=== PATIENT | male | born 1935 | race Caucasian/White ===

== ENCOUNTER 2017-03-05 14:18 | Inpatient (IN) ==
[2017-03-05] MEDS ORDERED: IOPAMIDOL 100 ML BOTTLE IV ONE (14:19)
--- NOTE | 2017-03-05 15:20 | Emergency Department Note ---
Weakness HPI - General Chief complaint: Weakness Stated complaint: Weakness Time Seen by Provider: 03/05/17 14:50 Source: patient, family Mode of arrival: wheelchair Limitations: no limitations - History of Present Illness HPI Narrative: This pleasant 81-year-old gentleman comes to the emergency room with a history of falling down a lot and this is been going on a long time but is gotten worse the last few days. 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 He has had a couple of days and which has been harder for him to be understood as far as his speech. His right leg has felt weak and giving out from underneath him as well as a floppy right foot different than usual. He has had no change in his medications except that 10 days ago tramadol was tried for his multitude of musculoskeletal pains and aches. 2 days ago he was taken off of this to see if it was contributing because he was also showing some up and down in his thinking. This is not seem to reverse in these 2 days. It has been harder to feed himself. Usually he normally does. His water pill was increased about 10 days ago for his congestive heart failure to help get some fluid off. The increased dose was just changed back to the previous dose today. REVIEW OF SYSTEMS: General: No fevers, chills, sweats CV: No chest pain, palpitations Pulmonary: No cough or shortness of breath. He uses oxygen at home 2 L/min day and night. GI: No abdominal pain nausea, vomiting, diarrhea, constipation, hematochezia, melena. : No dysuria or frequency. He has had some urgency. Derm: No rashes. Neuro: Has had a generalized chronic headache as if he has a hangover. He has some mild dizziness. Psych: He has some history of anxiety and depression and is on a medication/ antidepressant. Endocrine: Has felt fatigued chronically and rather significant or severely. - Related Data Home Medications Medication Instructions Recorded Confirmed Clopidogrel [Plavix] 75 mg PO DAILY 11/26/14 02/22/17 Omeprazole [Prilosec] 40 mg PO QDAY 11/26/14 02/22/17 Potassium Chloride [Klor-Con] 20 meq PO QIDP 11/26/14 02/22/17 amLODIPine [Norvasc] 5 mg PO DAILY 11/26/14 02/22/17 Bisoprolol Fumarate/Hctz 1 each PO BID 07/18/16 02/22/17 [Bisoprolol-Hctz 2.5-6.25 mg Tb] Tamsulosin [Flomax] 0.4 mg PO Q2D 07/18/16 02/22/17 Calcium + D 1 tab PO DAILY 09/30/16 02/22/17 acetaminophen 300 mg-codeine 30 mg 1 tab PO QID PRN tab 09/30/16 02/22/17 tablet amlodipine 10 mg tablet 10 mg PO QDAY 09/30/16 02/22/17 aspirin 81 mg tablet 81 mg PO .COMPLEX 09/30/16 02/22/17 glucosamine PO 10/01/16 02/22/17 mirtazapine 15 mg tablet 15 mg PO QDAY tab 10/01/16 02/22/17 Previous Rx's Medication Instructions Recorded citalopram 40 mg tablet 40 mg PO .COMPLEX #30 tab 10/22/16 atorvastatin 40 mg tablet 40 mg PO QDAY #90 tab 11/23/16 tramadol 50 mg tablet 50 mg PO Q6H PRN #90 tab 02/22/17 furosemide 40 mg tablet 40 mg PO BID #20 tab 02/24/17 Allergies Allergy/AdvReac Type Severity Reaction Status Date / Time bisacodyl Allergy Unknown Verified 02/22/17 16:29 senna Allergy Unknown Verified 02/22/17 16:29 Past Medical History - Past Medical History Medical history: Reports: cancer (prostate - seed implants.), CVA, hyperlipidemia, hypertension, other (Migraines, CVA, TIA, depression, hypertension, pacemaker, arthritis, degenerative joint disease urinary retention and prostatic cancer). Denies: COPD, dementia, DM (but "prediabetic". ), myocardial infarction, TIA Psychiatric history: Reports: anxiety, depression Surgical history ED: Reports: orthopedic, other (bilat. knee replacement), pacemaker/AICD - Social History smoking status: Former smoker Alcohol use: Reports: Occasionally, Daily (1-3 glasses of wine a day.) Drug use: Reports: none Physical Exam Limitations: no limitations General appearance: alert, in no apparent distress Head: atraumatic, normocephalic Eye: Present: EOMI, other (ectropian of lower lid moderate-severe.) ENT: mucous membranes moist, other (hard to understand some of speech - enunciation incomplete.) Respiratory: Present: normal lung sounds bilaterally. Absent: respiratory distress, wheezes, stridor, accessory muscle use, prolonged expiratory phase Cardiovascular: Present: regular rate, normal rhythm. Absent: systolic murmur, diastolic murmur Abdominal: Present: soft. Absent: distention, tenderness, guarding, rebound, rigidity, organomegaly, mass Extremities: Present: pretibial edema (trace bilateral pretibial (pitting).) Back: Absent: CVA tenderness (R), CVA tenderness (L), spinous process tenderness (except very low (mild).) Neurological: Present: alert, oriented X3 (missed date.) Psychiatric: Present: normal affect, normal mood Skin: Present: warm, dry Course Vital Signs Temperature 97.3 F 03/05/17 14:19 Pulse Rate 61 03/05/17 14:19 Respiratory Rate 16 03/05/17 14:19 Blood Pressure 163/85 03/05/17 14:19 Pulse Oximetry (%) 91 03/05/17 14:19 Temperature 97.3 F 03/05/17 14:19 Pulse Rate 60 03/05/17 18:34 Respiratory Rate 19 03/05/17 18:34 Blood Pressure 143/76 03/05/17 18:33 Pulse Oximetry (%) 97 03/05/17 18:34 Weakness - Lab Data Lab results reviewed: Yes I reviewed the patient's lab results. Result diagrams: 03/05/17 15:10 03/05/17 15:10 Lab Results 03/05/17 03/05/17 03/05/17 Range/Units 14:53 15:10 15:10 WBC 10.0 (4.5-11.0) K/mcL RBC 5.00 (4.50-5.90) M/mcL Hgb 14.4 (13.5-16.5) g/dL Hct 43.4 (41.0-55.0) % MCV 86.7 (80.0-100.0) fL MCH 28.9 (26.0-34.0) pg MCHC 33.3 (31.0-36.0) g/dL RDW 15.4 H (11.5-14.5) % Plt Count 187 (140-440) K/mcL MPV 8.2 (7.4-10.4) fL Gran % 64.9 (38.0-78.0) % Lymph % (Auto) 19.4 (15.5-49.0) % Mower % (Auto) 12.1 H (1.0-12.0) % Eos % (Auto) 3.2 (0.0-7.0) % Baso % (Auto) 0.4 (0.0-2.0) % Gran # 6.6 (1.8-8.0) K/mcL Lymph # (Auto) 1.9 (1.5-4.8) K/mcL Mower # (Auto) 1.2 H (0.1-0.9) K/mcL Eos # (Auto) 0.3 (0.0-0.7) K/mcL Baso # (Auto) 0 (0.0-0.3) K/mcL Sodium 145 (133-145) mmol/L Potassium 3.2 L (3.3-5.1) mmol/L Chloride 99 (96-108) mmol/L Carbon Dioxide 30 (22-30) mmol/L Anion Gap 16.0 (8-16) BUN 26 H (8-23) mg/dl Creatinine 1.4 H (0.7-1.2) mg/dl GFR Calculation 46 Glucose 108 H (70-105) mg/dL Calcium 8.9 (8.6-10.4) mg/dl Total Bilirubin 0.6 (0.0-1.0) mg/dL AST 19 (0-37) U/l ALT 11 (0-40) U/l Alkaline Phosphatase 83 (39-117) U/L C-Reactive Protein 1.0 H (0.0-0.8) mg/dl Total Protein 6.8 (5.9-8.4) gm/dL Albumin 4.0 (3.2-5.2) gm/dL Globulin 2.8 (2.2-3.7) gm/dL Albumin/Globulin Ratio 1.4 (1.0-2.3) Urine Color Yellow Urine Appearance Clear Urine pH 6.0 (5.0-9.0) Ur Specific [place] 1.012 (1.000-1.035) Urine Protein Neg (NEG) mg/dL Urine Glucose (UA) Negative (NEG) mg/dL Urine Ketones Neg (NEG) mg/dL Urine Occult Blood Neg (<0.03) mg/dL Urine Nitrate Neg (NEG) Urine Bilirubin Neg (NEG) mg/dL Urine Urobilinogen Neg (NEG) mg/dL Ur Leukocyte Esterase Neg (NEG) /uL Ur Culture Indicated? No - Radiology Data Radiology results reviewed: Yes I reviewed the patient's radiology results. Disposition Pt seen by [employer]/PA only: No Clinical Impression: Falling, Right leg weakness, Weakness of right foot, Weakness, Chronic anticoagulation, Artificial cardiac pacemaker, Supplemental oxygen dependent Summary: This patient had CT scan of his head with his past history a CTA of the head and neck was also achieved all of which were negative for stroke or perfusion abnormalities. Laboratory data showed a creatinine of 1.4 which is mildly elevated from previous. His potassium was mildly low at 3.2 which is suppressed from previous. BUN was elevated compared to previous. With patient's failure to be able to handle himself at home due to falls and weakness and dragging the foot, with changes in his speech and in this weakness , with probable dehydration from his diuretic, he is to be observed in the hospital while these are corrected and consider for placement in rehab. I spoke with Dr. Barney who kindly accepted this admission. Possibilities of a low back mechanical or compressive disorder contributing to his symptoms will be considered. MRI was not available this evening. Disposition: Xfer As Inpt ([facility]) Condition: Serious Referrals: Yovany Conde DO [Primary Care Provider] -
[2017-03-05 15:41] LABS: Basophils # (Auto) 0 K/mcL (0.0-0.3); Basophils % (Auto) 0.4 % (0.0-2.0); Eosinophils # (Auto) 0.3 K/mcL (0.0-0.7); Eosinophils % (Auto) 3.2 % (0.0-7.0); Granulocytes % (Auto) 64.9 % (38.0-78.0); Lymphocytes # (Auto) 1.9 K/mcL (1.5-4.8); Lymphocytes % (Auto) 19.4 % (15.5-49.0); Mean Cell Volume 86.7 fL (80.0-100.0); Mean Corpuscular HGB Conc 33.3 g/dL (31.0-36.0); Mean Corpuscular Hemoglobin 28.9 pg (26.0-34.0); Monocytes # (Auto) 1.2 K/mcL (0.1-0.9); Monocytes % (Auto) 12.1 % (1.0-12.0); Platelet Count 187 K/mcL (140-440); Red Cell Distribution Width 15.4 % (11.5-14.5)
[2017-03-05 16:03] LABS: ALT/SGPT 11 U/l (0-40); Albumin/Globulin Ratio 1.4 (1.0-2.3); Alkaline Phosphatase 83 U/L (39-117); Blood Urea Nitrogen 26 mg/dl (8-23)
--- NOTE | 2017-03-05 16:16 | Cat Scan Report ---
CLINICAL INFORMATION: Weakness history CVA COMPARISON: 07/18/2016. TECHNIQUE: 2.5 mm helical slices were obtained in the skull base to vertex. Following reconstruction, axial reformatted images were reviewed at bone and parenchymal windows. The exam was performed using radiation dose optimization techniques including, but not limited to, automated exposure control, adjustment of the mA and/or kV according to patient size and use of iterative reconstruction technique. FINDINGS: The ventricles, sulci, fissures, and cisterns are symmetrically enlarged compatible with mild age-related atrophy. No extra-axial fluid collections are identified. Patchy chronic ischemic changes in the cerebral white matter are stable. There is no evidence of hemorrhage, mass effect, or edema. Bone windows show no osseous abnormality. IMPRESSION: Mild atrophy and chronic ischemic changes in the cerebral white matter - stable Interpreted and Authenticated by: Yovany Mars 03/05/17
[2017-03-05 16:17] LABS: Appearance,Urine CLEAR; Bilirubin,Urine NEG (NEG); Color,Urine YELLOW; Glucose,Urine (UA) NEGATIVE (NEG); Leukocyte Esterase,Urine NEG /uL (NEG); Protein,Urine NEG (NEG); Specific Gravity,Urine 1.012 (1.000-1.035); Urine Blood NEG mg/dL (<0.03); Urobilinogen,Urine NEG (NEG)
--- NOTE | 2017-03-05 18:09 | Cat Scan Report ---
CLINICAL INFORMATION: Right leg weakness question CVA COMPARISON: None. TECHNIQUE: 80 cc of Isovue-300 were injected intravenously , and using SmartPrep to maximize cerebral arterial opacification, 0.625 mm helical slices were obtained from the skull base through the cerebral vertex. Following reconstruction , sagittal, coronal and axial reformatted images were processed and reviewed at multiple windows and levels. 3D volume rendered and MIP images were acquired at a independent workstation. The exam was performed using radiation dose optimization techniques including, but not limited to, automated exposure control, adjustment of the mA and/or kV according to patient size and use of iterative reconstruction technique. FINDINGS: The thoracic aortic arch is normal in contour and caliber. Aortic branching is conventional. The brachiocephalic, both subclavian, vertebral, both common, internal and external carotid arteries are widely patent. Soft tissues are normal. IMPRESSION: Normal Arteriogram Interpreted and Authenticated by: Yovany Mars 03/05/17
--- NOTE | 2017-03-05 18:10 | Cat Scan Report ---
CLINICAL INFORMATION: New onset leg weakness COMPARISON: None. TECHNIQUE: 80 cc of Isovue-300 were injected intravenously , and using SmartPrep to maximize cerebral arterial opacification, 0.625 mm helical slices were obtained from the skull base through the cerebral vertex. Following reconstruction , sagittal, coronal and axial reformatted images were processed and reviewed at multiple windows and levels. 3D volume rendered and MIP images were acquired at a independent workstation. The exam was performed using radiation dose optimization techniques including, but not limited to, automated exposure control, adjustment of the mA and/or kV according to patient size and use of iterative reconstruction technique. FINDINGS: The intracranial internal carotid, anterior, middle and posterior arteries and vertebral basilar arteries are well opacified and normal in contour and caliber without stenosis, occlusion or other abnormality. Superficial and deep cerebral veins and deep venous sinuses are widely patent IMPRESSION: Normal Interpreted and Authenticated by: Yovany Mars 03/05/17
[2017-03-05] MEDS ORDERED: 0.9 % SODIUM CHLORIDE 1,000 ML IV SCH (19:41)
[2017-03-05] MEDS ORDERED: ACETAMINOPHEN 325 MG TABLET PO PRN (19:41)
[2017-03-05] MEDS ORDERED: NALOXONE HCL 0.4 MG/ML VIAL IV PRN (19:41)
[2017-03-05] MEDS ORDERED: POTASSIUM CHLORIDE 20 MEQ PACKET PO ONE (19:41)
[2017-03-05] MEDS ORDERED: ONDANSETRON 4 MG/2 ML VIAL IV PRN (19:41)
[2017-03-05] MEDS: 0.9 % SODIUM CHLORIDE 10 ML SYRINGE IV SCH (19:45)
--- NOTE | 2017-03-05 21:18 | Internal Med History&Physical ---
Medical - H&P: HPI Patient information: Note initiated : 03/05/17 at 9:15 pm Service Date, if different from initiated Date: [] Patient: Jesus Falcon 81 y/o M admitted on 03/05/17 for Weakness. Chief Complaint: [] History of present illness: Mr. Falcon is a 81 year old Male presents to the ER today because of increased frequency of falls over the last 1 month, worse over last 1 week. The patient is accompained by his daugthers, and his , the patient has h/o CVA with Right sided weakness, over the last 1 week, its seen that he has had increased falls, His right leg and right arm is more weak than usual. He has had decline in his functional capacity. The patent just was diagnosed with cellulitis of the right leg and was treated with oral and IV antibiotics The patients also was noted to have some CHF exacerbation and his dose of diuretics was increased, with some response. The patient has chr back pain, as well as gen arthritis. He was given some tramadol 4-5 days ago, and initially it was felt that the increased falls and weakness is secondary to the patients use of tramadol, the patient continued to be weak despite cessation of tramadol therapy. The patient notes he has chr cough, and has noticed some wheezing, the patients admits to being dizzy, but denies any other complaints The patient is non smoker, but drinks 2 drinks daily He does not have any chest pain, no shortness of breath, no headache, no bowel or bladder complaints, no GI issues. In the ER the patient underwent COLLECTION CLERK workup, his labs showed low K of 3.2,. creat of 1.4, baseline 1.2, His CT Head, CTA neck and Head were neg for any acute process. Given is weakens, he was presented to the hospital for further evaluation, and was admitted to the hospital for further management. His bnp was normal, procalcitonin was neg, his CXR showed increased interstitial markings, and possible retrocardiac opacity. He was wheezing on exam but was on 2 L oxygen his usual home dose. Denies any h/o copd. All systems: reviewed and no additional remarkable complaints except as stated ( as per HPI) Medical - H&P: PM Medical history: Medical History (Last Reviewed 02/26/17 @ 07:38 by Yovany Conde DO) Abrasion (Acute) Contusion of right leg (Acute) Cellulitis (Acute) Falling (Acute) Right leg weakness (Acute) Weakness of right foot (Acute) Weakness (Acute) Chronic anticoagulation (Acute) Supplemental oxygen dependent (Acute) Cellulitis of right leg (Acute) Balance problem (Chronic) Hypoxemia (Acute) Headache (Chronic) Nuclear sclerotic cataract (Chronic) Non-rheumatic mitral regurgitation (Chronic) Contraction, premature ventricular (Chronic) AV block, 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) Extremity edema (Chronic) Repeated falls (Chronic) Hypertensive left ventricular hypertrophy (Chronic) Valvular heart disease (Chronic) Laceration of scalp without complication (Chronic) History of sleep apnea (Chronic) History of sick sinus syndrome (Chronic) History of head injury (Chronic) History of essential hypertension (Chronic) History of delirium (Chronic) Sleep apnea (Chronic) Sick sinus syndrome (Chronic) Reactive confusion (Chronic) Polycythemia (Chronic) Osteoarthritis (Chronic) Notalgia (Chronic) Muscle ache (Chronic) Hypoxia (Chronic) Hypokalemia (Chronic) Hyperlipidemia (Chronic) GERD without esophagitis (Chronic) Fatigue (Chronic) Edema (Chronic) Depression (Chronic) Cough (Chronic) Confusion (Chronic) Chronic diastolic congestive heart failure (Chronic) Acute sinusitis (Chronic) Abnormality of gait (Chronic) Abnormal hemoglobin (Chronic) SOB (shortness of breath) (Chronic ~2016) Heart trouble (Chronic ~2004) Stroke (Chronic ~2013) Joint pain (Chronic) Pacemaker (Chronic ~2004) Hypertension, essential (Chronic) Prostate cancer (Chronic ~2003) Arthritis (Chronic) Closed head injury (Chronic) Scalp laceration (Chronic) Laceration of right orbit (Chronic) Laceration (Chronic) Surgical history: Past Surgical History (Last Reviewed 02/26/17 @ 07:38 by Yovany Conde DO) H/O colonoscopy (Chronic) H/O left knee surgery (Chronic ~2006) H/O right knee surgery (Chronic ~2006) History of knee surgery (Chronic) History of permanent cardiac pacemaker placement (Chronic ~2004) Pertinent family history: Family History (Last Reviewed 02/26/17 @ 07:38 by Yovany Conde DO) Mother Arthritis Father Hypertension, essential Myocardial infarction Stroke syndrome Medical - H&P: Meds Home Medications Medication Instructions Recorded Confirmed Type Clopidogrel [Plavix] 75 mg PO DAILY 11/26/14 03/05/17 History Omeprazole [Prilosec] 40 mg PO QDAY 11/26/14 03/05/17 History Potassium Chloride [Klor-Con] 20 meq PO QIDP 11/26/14 03/05/17 History Bisoprolol Fumarate/Hctz 1 each PO BID 07/18/16 03/05/17 History [Bisoprolol-Hctz 2.5-6.25 mg Tb] Tamsulosin [Flomax] 0.4 mg PO QDAY 07/18/16 03/05/17 History amlodipine 10 mg tablet 10 mg PO QDAY 09/30/16 03/05/17 History aspirin 81 mg tablet 81 mg PO .COMPLEX 09/30/16 03/05/17 History glucosamine PO 10/01/16 02/22/17 History atorvastatin 40 mg tablet 40 mg PO QDAY #90 tab 11/23/16 03/05/17 Rx furosemide 40 mg tablet 40 mg PO BID #20 tab 02/24/17 03/05/17 Rx Calcium 600 mg PO QDAY 03/05/17 03/05/17 History Citalopram Hydrobromide 40 mg PO QDAY 03/05/17 03/05/17 History [Citalopram HBr] Allergies Allergy/AdvReac Type Severity Reaction Status Date / Time bisacodyl Allergy Severe Unknown Verified 03/05/17 20:28 senna Allergy Severe Unknown Verified 03/05/17 20:28 Medical - H&P: Exam - Constitutional Vitals: Temp Pulse Resp BP Pulse Ox 97.3 F 60 19 143/76 97 03/05/17 19:32 03/05/17 19:32 03/05/17 19:32 03/05/17 19:32 03/05/17 19:32 Exam: GENERAL: The patient is a well-developed, well-nourished in no apparent distress. Is alert and oriented x3. VITAL SIGNS: Reviewed and as noted elsewhere. HEENT: Head is normocephalic and atraumatic. Extraocular muscles are intact. Pupils are equal, round, and reactive to light. Nares appeared normal. Mouth appears any without lesions. Mucous membranes are dry NECK: Normal to inspection, Supple, No lymphadenopathy or thyromegaly. LUNGS: Air entry equal on both sides, valentine dimisshed air entry, proloned exp phase, valentine mild exp wheezing. he was somewhat short of breath and taking pauses while talking. no crackles on exam, no use of accessory muscles. HEART: Regular rate and rhythm normal, S1 and S2 heard, no Gallop, S3 or Rub Noted, aortic region systolic murmur 3/6 ABDOMEN: Soft, nontender, and nondistended. Positive bowel sounds. No hepatosplenomegaly was noted. EXTREMITIES: No cyanosis, clubbing, rash, lesions or edema. NEUROLOGIC: Cranial nerves II through XII are grossly intact. Motor and Sensory System Grossly Intact, right side 4+/5, left 5/5 PSYCHIATRIC: Normal affect, Normal Mood. Appropriate Behavior. SKIN: No ulceration or wounds noted, No jaundice, No rash noted. Medical - H&P: Reslt - Labs CBC & Chem 7: 03/05/17 15:10 03/05/17 15:10 Labs: Short CBC 03/05/17 Range/Units 15:10 WBC 10.0 (4.5-11.0) K/mcL Hgb 14.4 (13.5-16.5) g/dL Hct 43.4 (41.0-55.0) % Plt Count 187 (140-440) K/mcL BMP 03/05/17 15:10 Sodium 145 Potassium 3.2 L Chloride 99 Carbon Dioxide 30 BUN 26 H Creatinine 1.4 H Glucose 108 H Calcium 8.9 Liver Function 03/05/17 Range/Units 15:10 Total Bilirubin 0.6 (0.0-1.0) mg/dL AST 19 (0-37) U/l ALT 11 (0-40) U/l Alkaline Phosphatase 83 (39-117) U/L Albumin 4.0 (3.2-5.2) gm/dL Urine 03/05/17 Range/Units 14:53 Urine Color Yellow Urine Appearance Clear Urine pH 6.0 (5.0-9.0) Ur Specific [place] 1.012 (1.000-1.035) Urine Protein Neg (NEG) mg/dL Urine Glucose (UA) Negative (NEG) mg/dL Medical - H&P: A/P - Narrative A/P Narrative: A/P SHOrtness of breath: Etiology , undiagnosed copd/ Reactive Air way disease? Patient does not have h/o smoking but canchola have valentine wheezing and poor air entry, Plan go start on duonebs for now. GEt CT chest to r/o retrocardiac pneumonia Recurrent falls: secondary to above, no e/o infections, Rehab with OT/PT, tret underlying condition. Check for X ray pelvis and Lumbar CT to r/o fractures and any obvious spinal pathology, Unable to get MRI due to pace maker Chr resp failure, Hypoxic: On 2 L oxygen, not sure if a PFT was done, etiology? CHF/ diastolic heart failure/ sick sinus syndrome: On diuretics, and bp regime, bp stable, continue to monitor, bnp normal CKD: Slight worsening from baseline creat at 1.4, baseline around 1.2. Monitor for now. CVA: On statin, asa and plavix continue same HTN: Hold bp meds, monitor status, resume once able Chr back pain: prn oxycodone for now, rehab DVT hep sq Diet Cardiac Full code Social History - Social History marital status: occupational status: retired - Tobacco smoking status: Never smoker - Alcohol alcohol intake frequency: 0-2 drinks per day - Substance use substance use type: does not use
[2017-03-05] MEDS: HEPARIN 5,000 UNIT/ML VIAL SQ SCH (21:24)
[2017-03-05] MEDS: ALBUTEROL SULFATE 2.5 MG/3 ML NEBULIZER NEB PRN ×2 (21:36→21:37)
[2017-03-06] MEDS: oxyCODONE HCL 5 MG TABLET PO PRN ×2 (00:35→08:01)
[2017-03-06] MEDS: IPRATROPIUM/ALBUTEROL 3 ML AMPUL.NEB NEB SCH ×8 (00:48→23:45)
[2017-03-06] MEDS ORDERED: IPRATROPIUM/ALBUTEROL 3 ML AMPUL.NEB NEB ONE (04:13)
--- NOTE | 2017-03-06 05:12 | XRay Report ---
CLINICAL INFORMATION: History of ischemic heart disease. Weakness COMPARISON: 02/22/2017 FINDINGS: Moderate cardiomegaly is unchanged. 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 The atrioventricular lead and wires are in stable satisfactory position. Mediastinum and pulmonary vessels are normal. There is mild bibasilar atelectasis. No effusions IMPRESSION: Moderate stable cardiomegaly - no evidence of CHF Mild bibasilar atelectasis Interpreted and Authenticated by: Yovany Mars 03/06/17
[2017-03-06] MEDS: 0.9 % SODIUM CHLORIDE 10 ML SYRINGE IV SCH ×3 (05:25→19:00)
[2017-03-06 05:40] LABS: Basophils # (Auto) 0 K/mcL (0.0-0.3); Basophils % (Auto) 0.4 % (0.0-2.0); Eosinophils # (Auto) 0.4 K/mcL (0.0-0.7); Eosinophils % (Auto) 3.6 % (0.0-7.0); Granulocytes % (Auto) 73.2 % (38.0-78.0); Lymphocytes # (Auto) 1.5 K/mcL (1.5-4.8); Lymphocytes % (Auto) 14.1 % (15.5-49.0); Mean Corpuscular HGB Conc 32.4 g/dL (31.0-36.0); Mean Corpuscular Hemoglobin 29.5 pg (26.0-34.0); Monocytes # (Auto) 0.9 K/mcL (0.1-0.9); Monocytes % (Auto) 8.7 % (1.0-12.0); Platelet Count 192 K/mcL (140-440); RBC 4.49 M/mcL (4.50-5.90); Red Cell Distribution Width 16.3 % (11.5-14.5)
[2017-03-06 05:49] LABS: ALT/SGPT 11 U/l (0-40); Albumin 4.1 gm/dL (3.2-5.2); Albumin/Globulin Ratio 1.7 (1.0-2.3); Alkaline Phosphatase 77 U/L (39-117); Bilirubin,Direct < 0.2 mg/dL (0.0-0.3); Blood Urea Nitrogen 20 mg/dl (8-23); Gamma Glutamyl Transpeptidase 15 U/L (8-61); Uric Acid 9.3 mg/dL (2.5-8.0)
--- NOTE | 2017-03-06 06:02 | XRay Report ---
CLINICAL INFORMATION: Trauma - fall. Leg weakness COMPARISON: None. FINDINGS: There are metallic radiation seeds within the prostate region. Residual contrast from earlier CT seen within the urinary bladder. There is no fracture or other osseous normality. Moderate degeneration in the left hip noted with mild degenerative change in the right hip. Both SI joints are normal. Soft tissues otherwise normal IMPRESSION: No evidence of fracture. Moderate left and mild right hip degenerative change Interpreted and Authenticated by: Yovany Mars 03/06/17
--- NOTE | 2017-03-06 07:48 | Cat Scan Report ---
CLINICAL INFORMATION: Cough COMPARISON: None TECHNIQUE: 0.625 mm axial slices were obtained from the lung apices through the bases without intravenous contrast. 2.5 mm Sagittal, coronal and axial reformatted images were processed and reviewed at bone, lung and soft tissue windows. 7 mm axial MIP images were also reconstructed to optimize pulmonary nodule detection.The exam was performed using radiation dose optimization techniques including, but not limited to, automated exposure control, adjustment of the mA and/or kV according to patient size and use of iterative reconstruction technique. FINDINGS: Pulmonary parenchymal windows show subsegmental atelectasis in the posterior inferior left lower lobe. No roxana infiltrates. Tubular bronchiectasis involving segmental and subsegmental bronchi of the medial posterior and lateral basilar segments of both lower lobes. There is minimal underlying bronchitis featuring mildly elevated lung volumes and dilatation wall thickening of the bronchi. There are scattered partially calcified pleural plaque confined to the the right thorax which should represent stigmata of old hemorrhage or old empyema. Mediastinal windows show the noncontrasted heart is moderately enlarged. 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 The wire enters through the coronary sinus into the right atrium and ventricle. The noncontrasted thoracic aorta and pulmonary arteries are normal in contour and caliber. There is no adenopathy mediastinal, hilar or axillary regions. The thyroid is normal. Esophagus is grossly normal. Subacute nondisplaced fractures of the right seventh and 10th ribs appreciated. Mild compression fracture of the superior T3 endplate is indeterminate chronicity. IMPRESSION: 1. No infiltrates 2. Subsegmental atelectasis in the posterior inferior left lower lobe 3. Bronchiectasis in the segmental and subsegmental bronchi of the medial, posterior lateral basilar segments of the lower lobes which may predispose to aspiration or infection. Mild underlying chronic bronchitis 4. Subacute nondisplaced healing fractures of the right seventh through 10th posterior lateral ribs. Mild fracture superior T3 endplate is age indeterminate Interpreted and Authenticated by: Yovany Mars 03/06/17
--- NOTE | 2017-03-06 07:56 | Cat Scan Report ---
CLINICAL INFORMATION: Back pain and leg weakness. Multiple prior falls COMPARISON: None. TECHNIQUE: 0.625 mm helical slices were obtained from the mid T12 through mid S2 vertebral bodies. Following reconstruction, 2.5 mm coronal, sagittal, and axial reformations (angle to the disc spaces) were processed. Exam was reviewed at bone and soft tissue windows.The exam was performed using radiation dose optimization techniques including, but not limited to, automated exposure control, adjustment of the mA and/or kV according to patient size and use of iterative reconstruction technique. FINDINGS: The sagittal and coronal reformatted images show slight rightward curve in the lumbar spine. No abnormal subluxation however. Mild compression fracture of the superior L2 endplate is likely chronic. No other osseous abnormalities. Soft tissues are unremarkable. At T12-L1, moderate broad disc protrusion with left-sided asymmetry results in mild left lateral recess/IV foraminal narrowing. At L1-2, moderate broad disc protrusion right-sided asymmetry results in mild central canal and right IV foraminal narrowing. There is mild facet arthropathy resulting in mild central canal narrowing. At L2-3, moderate broad disc protrusion with right-sided asymmetry and facet arthropathy resulting in moderate central canal and mild right IV foraminal and lateral recess narrowing. Possible vague the exiting right L2 descending right L3 nerve root At L3-4, mild broad disc protrusion with right-sided asymmetry and facet arthropathy result in mild right IV foraminal narrowing. At L4-5, moderate broad disc spur complex with right-sided asymmetry results in moderate right lateral recess/IV foraminal narrowing impinging the exiting right L4 and descending right L5 nerve root. Moderate bilateral facet arthropathy in conjunction with disc protrusion results in moderate central canal stenosis. At L5-S1, moderate broad disc spur complex with left-sided asymmetry and facet arthropathy result in mild bilateral IV foraminal narrowing. There is mild facet arthropathy IMPRESSION: 1. Mild L2 compression fracture - likely chronic 2. Multilevel degenerative change - as described Interpreted and Authenticated by: Yovany Mars 03/06/17
[2017-03-06] MEDS: BISOPROLOL 5 MG TABLET PO SCH (09:10)
[2017-03-06] MEDS: CITALOPRAM 20 MG TABLET PO SCH (09:10)
[2017-03-06] MEDS: CALCIUM CARBONATE 500 MG TAB.CHEW CHEWED SCH (09:10)
[2017-03-06] MEDS: HYDROCHLOROTHIAZIDE 25 MG TABLET PO SCH (09:10)
[2017-03-06] MEDS: PANTOPRAZOLE 40 MG TABLET PO SCH (09:10)
[2017-03-06] MEDS: HEPARIN 5,000 UNIT/ML VIAL SQ SCH ×3 (09:10→20:39)
[2017-03-06] MEDS: FUROSEMIDE 40 MG TABLET PO SCH ×3 (09:10→20:39)
[2017-03-06] MEDS: POTASSIUM CHLORIDE 20 MEQ PACKET PO SCH ×4 (09:10→20:21)
[2017-03-06] MEDS: amLODIPine 10 MG TABLET PO SCH (09:10)
[2017-03-06] MEDS: ATORVASTATIN 20 MG TABLET PO SCH (09:10)
[2017-03-06] MEDS: TAMSULOSIN 0.4 MG CAPSULE PO SCH (09:10)
[2017-03-06] MEDS: CLOPIDOGREL 75 MG TABLET PO SCH (09:10)
[2017-03-06] MEDS: LIDOCAINE PATCH TOPICAL SCH (11:03)
[2017-03-06] MEDS: methylPREDNISolone SOD SUCC 125 MG/2 ML VIAL IV SCH ×3 (11:04→23:44)
[2017-03-06] MEDS: ACETAMINOPHEN 1,000 MG/100 ML BOTTLE IV SCH ×2 (11:24→19:00)
[2017-03-06] MEDS: ASPIRIN 81 MG TAB.CHEW PO SCH (12:48)
--- NOTE | 2017-03-06 14:03 | Internal Med Progress Note ---
Medical - PN: Subj Patient information: Note initiated : 03/06/17 at 2:01 pm Service Date, if different from initiated Date: [] Patient: Jesus Falcon 81 y/o M admitted on 03/05/17 for Weakness. Chief Complaint: [] Interval history: Mr. Falcon is a 81 year old Male presents to the ER today because of increased frequency of falls over the last 1 month, worse over last 1 week. The patient is accompained by his daugthers, and his , the patient has h/o CVA with Right sided weakness, over the last 1 week, its seen that he has had increased falls, His right leg and right arm is more weak than usual. He has had decline in his functional capacity. The patent just was diagnosed with cellulitis of the right leg and was treated with oral and IV antibiotics The patients also was noted to have some CHF exacerbation and his dose of diuretics was increased, with some response. The patient has chr back pain, as well as gen arthritis. He was given some tramadol 4-5 days ago, and initially it was felt that the increased falls and weakness is secondary to the patients use of tramadol, the patient continued to be weak despite cessation of tramadol therapy. The patient notes he has chr cough, and has noticed some wheezing, the patients admits to being dizzy, but denies any other complaints The patient is non smoker, but drinks 2 drinks daily He does not have any chest pain, no shortness of breath, no headache, no bowel or bladder complaints, no GI issues. In the ER the patient underwent COUNSELING DIRECTOR workup, his labs showed low K of 3.2,. creat of 1.4, baseline 1.2, His CT Head, CTA neck and Head were neg for any acute process. Given is weakens, he was presented to the hospital for further evaluation, and was admitted to the hospital for further management. His bnp was normal, procalcitonin was neg, his CXR showed increased interstitial markings, and possible retrocardiac opacity. He was wheezing on exam but was on 2 L oxygen his usual home dose. Denies any h/o copd. Mar 06 patient seen examined, overnight was consued, ABG reviewed, no co2 narcosis, pt CT chest is neg for infection, his pelvis x ray is neg, and his CT lumbar shows DJD but no e/o acute compression fracture or obvious nerve compromise. The patient still feels weak, is valentine wheezing, likely has copd exacerbatin which is contributing to hsi weakness Given that he will take more therapy/ rehab, over the next few days, will need more steroids and nebulizer traetment. Anticipated stay > 3 days, will change inpt since admission. Pertinent ROS: Denies headache, dizziness Denies chest pain, palpitations Present chr cough , still has shortness of breath Denies abdominal pain, nausea or vomiting. - Constitutional Vitals: Vital Signs Temp Pulse Resp BP Pulse Ox 98.3 F 69 20 147/78 94 03/06/17 12:00 03/06/17 11:33 03/06/17 12:00 03/06/17 12:00 03/06/17 12:00 Period Temp Pulse Resp BP Sys/Abdi Pulse Ox Last 24 Hr 97.3 F-98.3 F 60-86 14-27 110-182/75-100 88-98 Intake and Output 03/06/17 03/06/17 03/06/17 05:59 13:59 21:59 Intake Total 500 / 500 340 / 340 Output Total 102 / 102 151 / 151 Balance 398 / 398 189 / 189 Intake & Output: Intake & Output 03/06/17 03/06/17 03/06/17 05:59 13:59 21:59 Intake Total 500 / 500 340 / 340 Output Total 102 / 102 151 / 151 Balance 398 / 398 189 / 189 Intake: IV 100 / 100 Oral 500 / 500 240 / 240 Output: Void Amount 100 / 100 150 / 150 # of times incontinent of urine 2 / 2 Other: Meal Lunch Percent of Meal Consumed 90% Feeding Ability Assist with Tray Set Up # Voids 0 # Bowel Movements 1 0 Exam: Constitutional; Afebrile, cooperative, alert, not in distress. Eyes- No icterus, , No periorbital swelling Ears- Ext ear normal, hearing normal to conversation. Neck- Midline trachea, supple Respiratory system: Air Entry decreased on both sides, valentine wheezing, poor air entry valentine, no crackles. CVS- Rate rhythm regular, S1,S2 heard, no gallop, no rub. Abdomen- Soft nontender abdomen, no organomegaly, no tenderness, no guarding or rigidity, COUNSELING DIRECTOR- AOOx3, moving all extremities, no gross focal deficit noted. right side slightly more weakner than the left. Medical - PN: Obj Da - Labs CBC & Chem 7: 03/06/17 04:10 03/06/17 04:10 Labs: Abnormal Lab Results 03/06/17 03/06/17 03/05/17 04:10 04:10 15:10 RBC 4.49 L Hgb 13.2 L Hct 40.9 L RDW 16.3 H Lymph % (Auto) 14.1 L [place] % (Auto) [place] # (Auto) Potassium 3.1 L 3.2 L BUN 26 H Creatinine 1.4 H Glucose 111 H 108 H Uric Acid 9.3 H Lactate Dehydrogenase 261 H C-Reactive Protein 1.0 H 03/05/17 15:10 RBC Hgb Hct RDW 15.4 H Lymph % (Auto) [place] % (Auto) 12.1 H [place] # (Auto) 1.2 H Potassium BUN Creatinine Glucose Uric Acid Lactate Dehydrogenase C-Reactive Protein Meds: Medications Albuterol Sulfate (Ventolin) 2.5 mg NEB Q2HP PRN PRN Reason: Shortness Of Breath Last Admin: 03/05/17 21:37 Dose: 2.5 mg Albuterol/Ipratropium (Duoneb) 3 ml NEB Q4HRT [facility] Last Admin: 03/06/17 11:33 Dose: 3 ml Amlodipine Besylate (Norvasc) 10 mg PO QDAY [facility] Last Admin: 03/06/17 09:10 Dose: 10 mg Aspirin (Aspirin) 81 mg PO DAILY [facility] Last Admin: 03/06/17 12:48 Dose: 81 mg Atorvastatin Calcium (Lipitor) 40 mg PO DAILY [facility] Last Admin: 03/06/17 09:10 Dose: 40 mg Bisoprolol Fumarate (Zebeta) 2.5 mg PO DAILY [facility] Last Admin: 03/06/17 09:10 Dose: 2.5 mg Calcium Carbonate/Glycine (Tums) 500 mg CHEWED DAILY [facility] Last Admin: 03/06/17 09:10 Dose: 500 mg Citalopram Hydrobromide (Celexa) 40 mg PO DAILY [facility] Last Admin: 03/06/17 09:10 Dose: 40 mg Clopidogrel Bisulfate (Plavix) 75 mg PO DAILY [facility] Last Admin: 03/06/17 09:10 Dose: 75 mg Doxycycline Hyclate (Doxycycline Hyclate) 100 mg PO BID [facility] Furosemide (Lasix) 40 mg PO BID [facility] Last Admin: 03/06/17 09:10 Dose: 40 mg Heparin Sodium (Porcine) (Heparin) 5,000 unit SQ Q12 [facility] Last Admin: 03/06/17 09:10 Dose: 5,000 unit Hydrochlorothiazide (Oretic) 6.25 mg PO DAILY [facility] Last Admin: 03/06/17 09:10 Dose: 6.25 mg Acetaminophen (Ofirmev) 1,000 mg in 100 mls @ 200 mls/hr IV Q8H [facility] Last Infusion: 03/06/17 12:00 Dose: Infused Latanoprost (Xalatan Ophth Drops) 1 gtt OU HS [facility] Lidocaine (Lidoderm) 1 patch TOPICAL DAILY@1000 [facility] Last Admin: 03/06/17 11:03 Dose: 1 patch Methylprednisolone Sodium Succinate (Solu-Medrol) 62.5 mg IV Q6 [facility] Last Admin: 03/06/17 11:04 Dose: 62.5 mg Naloxone HCl (Narcan) 0.1 mg IV Q2MIN PRN PRN Reason: Opiate Reversal Ondansetron HCl (Zofran) 4 mg IV Q6HP PRN PRN Reason: Nausea And Vomiting Oxycodone HCl (Roxicodone) 5 mg PO Q4HP PRN PRN Reason: PAIN LEVEL 3-6 Last Admin: 03/06/17 08:01 Dose: 5 mg Pantoprazole Sodium (Protonix) 40 mg PO QAMAC [facility] Last Admin: 03/06/17 09:10 Dose: 40 mg Potassium Chloride (Klor-Con) 20 meq PO QID [facility] Last Admin: 03/06/17 12:48 Dose: 20 meq Sodium Chloride (Saline Flush) 10 ml IV Q8 [facility] Last Admin: 03/06/17 13:55 Dose: 10 ml Tamsulosin HCl (Flomax) 0.4 mg PO QDAY [facility] Last Admin: 03/06/17 09:10 Dose: 0.4 mg Medical - PN: A/P - Time Spent With Patient Total time spent is greater than 50% in coordination of care (as documented) at patient's floor/unit and/or counseling patient: - Narrative A/P Narrative: A/P Acute copd exacerbation, : Patient does not have h/o smoking but canchola have valentine wheezing and poor air entry, Plan go start on duonebs for now.CT chest is negative, patient will be started on steroids, Recurrent falls: secondary to above, no e/o infections, Rehab with OT/PT, tret underlying condition. x ray neg for fractures. Chr resp failure, Hypoxic: On 2 L oxygen, not sure if a PFT was done planeed for next week as per family. CHF/ diastolic heart failure/ sick sinus syndrome: On diuretics, and bp regime, bp stable, continue to monitor, bnp normal CKD: creat back to baseline at 1.1 today CVA: On statin, asa and plavix continue same HTN: bp stable resume home meds. Chr back pain: prn oxycodone for now, rehab, lidoderm patch. DVT hep sq Diet Cardiac Full code
[2017-03-06] MEDS: DOXYCYCLINE HYCLATE 100 MG TABLET.ORL PO SCH ×2 (20:21→20:39)
[2017-03-06] MEDS: LATANOPROST OPHTH DROPS 2.5ML BOTTLE OU SCH ×2 (20:23→20:39)
[2017-03-06] MEDS ORDERED: THIAMINE 100 MG in 0.9 % SODIUM CHLORIDE 50 ML IV ONE (20:57)
[2017-03-06] MEDS ORDERED: THIAMINE 100 MG/ML VIAL ONE (22:30)
[2017-03-07] MEDS: ACETAMINOPHEN 1,000 MG/100 ML BOTTLE IV SCH ×3 (03:31→18:54)
[2017-03-07] MEDS: IPRATROPIUM/ALBUTEROL 3 ML AMPUL.NEB NEB SCH ×6 (03:39→23:08)
[2017-03-07] MEDS: methylPREDNISolone SOD SUCC 125 MG/2 ML VIAL IV SCH ×4 (05:45→23:08)
[2017-03-07] MEDS: 0.9 % SODIUM CHLORIDE 10 ML SYRINGE IV SCH ×3 (05:45→19:00)
[2017-03-07 06:37] LABS: Basophils # (Auto) 0 K/mcL (0.0-0.3); Basophils % (Auto) 0 % (0.0-2.0); Eosinophils # (Auto) 0 K/mcL (0.0-0.7); Eosinophils % (Auto) 0 % (0.0-7.0); Lymphocytes # (Auto) 0.8 K/mcL (1.5-4.8); Lymphocytes % (Auto) 7.6 % (15.5-49.0); Mean Cell Volume 91.6 fL (80.0-100.0); Mean Corpuscular Hemoglobin 29.3 pg (26.0-34.0); Monocytes # (Auto) 0.2 K/mcL (0.1-0.9); Monocytes % (Auto) 2.4 % (1.0-12.0); Platelet Count 187 K/mcL (140-440); Red Cell Distribution Width 15.8 % (11.5-14.5)
[2017-03-07] MEDS: PANTOPRAZOLE 40 MG TABLET PO SCH (06:44)
[2017-03-07 06:55] LABS: ALT/SGPT 13 U/l (0-40); Albumin 4.2 gm/dL (3.2-5.2); Albumin/Globulin Ratio 1.4 (1.0-2.3); Alkaline Phosphatase 78 U/L (39-117); Bilirubin,Direct < 0.2 mg/dL (0.0-0.3); Blood Urea Nitrogen 17 mg/dl (8-23); Gamma Glutamyl Transpeptidase 17 U/L (8-61)
[2017-03-07] MEDS: BISOPROLOL 5 MG TABLET PO SCH (08:08)
[2017-03-07] MEDS: ASPIRIN 81 MG TAB.CHEW PO SCH (08:08)
[2017-03-07] MEDS: CITALOPRAM 20 MG TABLET PO SCH (08:09)
[2017-03-07] MEDS: CLOPIDOGREL 75 MG TABLET PO SCH (08:09)
[2017-03-07] MEDS: TAMSULOSIN 0.4 MG CAPSULE PO SCH (08:10)
[2017-03-07] MEDS: ATORVASTATIN 20 MG TABLET PO SCH (08:10)
[2017-03-07] MEDS: HEPARIN 5,000 UNIT/ML VIAL SQ SCH ×2 (08:10→20:27)
[2017-03-07] MEDS: DOXYCYCLINE HYCLATE 100 MG TABLET.ORL PO SCH ×2 (08:10→20:28)
[2017-03-07] MEDS: amLODIPine 10 MG TABLET PO SCH (08:10)
[2017-03-07] MEDS: HYDROCHLOROTHIAZIDE 25 MG TABLET PO SCH (08:11)
[2017-03-07] MEDS: POTASSIUM CHLORIDE 20 MEQ PACKET PO SCH (08:11)
[2017-03-07] MEDS ORDERED: POTASSIUM CHLORIDE 20 MEQ PACKET PO ONE (08:12)
[2017-03-07] MEDS: CALCIUM CARBONATE 500 MG TAB.CHEW CHEWED SCH (08:12)
[2017-03-07] MEDS: FUROSEMIDE 40 MG TABLET PO SCH ×2 (08:12→20:27)
[2017-03-07] MEDS: LIDOCAINE PATCH TOPICAL SCH (10:44)
--- NOTE | 2017-03-07 11:37 | Internal Med Progress Note ---
Medical - PN: Subj Patient information: Note initiated : 03/07/17 at 11:33 am Service Date, if different from initiated Date: [] Patient: Jesus Falcon 81 y/o M admitted on 03/05/17 for Weakness. Chief Complaint: [] Interval history: Mr. Falcon is a 81 year old Male presents to the ER today because of increased frequency of falls over the last 1 month, worse over last 1 week. The patient is accompained by his daugthers, and his , the patient has h/o CVA with Right sided weakness, over the last 1 week, its seen that he has had increased falls, His right leg and right arm is more weak than usual. He has had decline in his functional capacity. The patent just was diagnosed with cellulitis of the right leg and was treated with oral and IV antibiotics The patients also was noted to have some CHF exacerbation and his dose of diuretics was increased, with some response. The patient has chr back pain, as well as gen arthritis. He was given some tramadol 4-5 days ago, and initially it was felt that the increased falls and weakness is secondary to the patients use of tramadol, the patient continued to be weak despite cessation of tramadol therapy. The patient notes he has chr cough, and has noticed some wheezing, the patients admits to being dizzy, but denies any other complaints The patient is non smoker, but drinks 2 drinks daily He does not have any chest pain, no shortness of breath, no headache, no bowel or bladder complaints, no GI issues. In the ER the patient underwent FACE BURLER workup, his labs showed low K of 3.2,. creat of 1.4, baseline 1.2, His CT Head, CTA neck and Head were neg for any acute process. Given is weakens, he was presented to the hospital for further evaluation, and was admitted to the hospital for further management. His bnp was normal, procalcitonin was neg, his CXR showed increased interstitial markings, and possible retrocardiac opacity. He was wheezing on exam but was on 2 L oxygen his usual home dose. Denies any h/o copd. Mar 06 patient seen examined, overnight was consued, ABG reviewed, no co2 narcosis, pt CT chest is neg for infection, his pelvis x ray is neg, and his CT lumbar shows DJD but no e/o acute compression fracture or obvious nerve compromise. The patient still feels weak, is valentine wheezing, likely has copd exacerbating which is contributing to hsi weakness Given that he will take more therapy/ rehab, over the next few days, will need more steroids and nebulizer traetment. Anticipated stay > 3 days, will change inpt since admission. mar 07 patient seen examined,overnight had some confusion, mild parnoia, did not take his medications, tried to hide them under the bedsheets patient otherwise feels better today plan of care reviewed with family, all questions answered. Pertinent ROS: Denies headache, dizziness Denies chest pain, palpitations Denies cough or shortness of breath Denies abdominal pain, nausea or vomiting. - Constitutional Vitals: Vital Signs Temp Pulse Resp BP Pulse Ox 98.2 F 75 20 158/94 95 03/07/17 06:37 03/07/17 11:29 03/07/17 11:29 03/07/17 06:37 03/07/17 11:02 Period Temp Pulse Resp BP Sys/Abdi Pulse Ox Last 24 Hr 97.9 F-98.5 F 60-84 13-24 131-182/70-94 87-97 Intake and Output 03/06/17 03/07/17 03/07/17 21:59 05:59 13:59 Intake Total 790 / 790 400 / 400 Output Total 576 / 576 150 / 150 Balance 214 / 214 250 / 250 Weight 216 lb Intake & Output: Intake & Output 03/06/17 03/07/17 03/07/17 21:59 05:59 13:59 Intake Total 790 / 790 400 / 400 Output Total 576 / 576 150 / 150 Balance 214 / 214 250 / 250 Weight 216 lb Intake: IV 100 / 100 100 / 100 Oral 690 / 690 300 / 300 Output: Void Amount 575 / 575 150 / 150 # of times incontinent of urine Other: Meal Dinner Breakfast Percent of Meal Consumed 50% 75% # Voids 02 08 Exam: Constitutional; Afebrile, cooperative, alert, not in distress. Eyes- No icterus, , No periorbital swelling Ears- Ext ear normal, hearing hard to conversation. Neck- Midline trachea, supple Respiratory system: Air Entry equal on both sides, No crackles better air entry today, minimal wheezin.g CVS- Rate rhythm regular, S1,S2 heard, no gallop, no rub. FACE BURLER- AOOx3, moving all extremities, stable neuro exam Medical - PN: Obj Da - Labs CBC & Chem 7: 03/07/17 04:00 03/07/17 04:00 Labs: Abnormal Lab Results 03/07/17 03/07/17 03/06/17 04:00 04:00 04:10 RBC 4.49 L Hgb 13.2 L Hct 40.9 L RDW 15.8 H 16.3 H Gran % 90.0 H Lymph % (Auto) 7.6 L 14.1 L [place] % (Auto) Gran # 9.2 H Lymph # (Auto) 0.8 L [place] # (Auto) Potassium BUN Creatinine Glucose 151 H Uric Acid Phosphorus 2.6 L Lactate Dehydrogenase 276 H C-Reactive Protein 03/06/17 03/05/17 03/05/17 04:10 15:10 15:10 RBC Hgb Hct RDW 15.4 H Gran % Lymph % (Auto) [place] % (Auto) 12.1 H Gran # Lymph # (Auto) [place] # (Auto) 1.2 H Potassium 3.1 L 3.2 L BUN 26 H Creatinine 1.4 H Glucose 111 H 108 H Uric Acid 9.3 H Phosphorus Lactate Dehydrogenase 261 H C-Reactive Protein 1.0 H Meds: Medications Albuterol Sulfate (Ventolin) 2.5 mg NEB Q2HP PRN PRN Reason: Shortness Of Breath Last Admin: 03/05/17 21:37 Dose: 2.5 mg Albuterol/Ipratropium (Duoneb) 3 ml NEB Q4HRT [facility] Last Admin: 03/07/17 11:29 Dose: 3 ml Amlodipine Besylate (Norvasc) 10 mg PO QDAY [facility] Last Admin: 03/07/17 08:10 Dose: 10 mg Aspirin (Aspirin) 81 mg PO DAILY [facility] Last Admin: 03/07/17 08:08 Dose: 81 mg Atorvastatin Calcium (Lipitor) 40 mg PO DAILY [facility] Last Admin: 03/07/17 08:10 Dose: 40 mg Bisoprolol Fumarate (Zebeta) 2.5 mg PO DAILY [facility] Last Admin: 03/07/17 08:08 Dose: 2.5 mg Calcium Carbonate/Glycine (Tums) 500 mg CHEWED DAILY [facility] Last Admin: 03/07/17 08:12 Dose: 500 mg Citalopram Hydrobromide (Celexa) 40 mg PO DAILY [facility] Last Admin: 03/07/17 08:09 Dose: 40 mg Clopidogrel Bisulfate (Plavix) 75 mg PO DAILY [facility] Last Admin: 03/07/17 08:09 Dose: 75 mg Doxycycline Hyclate (Doxycycline Hyclate) 100 mg PO BID [facility] Last Admin: 03/07/17 08:10 Dose: 100 mg Furosemide (Lasix) 40 mg PO BID [facility] Last Admin: 03/07/17 08:12 Dose: 40 mg Heparin Sodium (Porcine) (Heparin) 5,000 unit SQ Q12 [facility] Last Admin: 03/07/17 08:10 Dose: 5,000 unit Hydrochlorothiazide (Oretic) 6.25 mg PO DAILY [facility] Last Admin: 03/07/17 08:11 Dose: 6.25 mg Acetaminophen (Ofirmev) 1,000 mg in 100 mls @ 200 mls/hr IV Q8H [facility] Last Admin: 03/07/17 10:44 Dose: 200 mls/hr Thiamine HCl 100 mg/ Sodium (Chloride) 51 mls @ 50 mls/hr IV DAILY [facility] Stop: 03/09/17 10:02 Latanoprost (Xalatan Ophth Drops) 1 gtt OU HS [facility] Last Admin: 03/06/17 20:39 Dose: Not Given Lidocaine (Lidoderm) 1 patch TOPICAL DAILY@1000 [facility] Last Admin: 03/07/17 10:44 Dose: 1 patch Methylprednisolone Sodium Succinate (Solu-Medrol) 62.5 mg IV Q6 [facility] Last Admin: 03/07/17 05:45 Dose: 62.5 mg Naloxone HCl (Narcan) 0.1 mg IV Q2MIN PRN PRN Reason: Opiate Reversal Ondansetron HCl (Zofran) 4 mg IV Q6HP PRN PRN Reason: Nausea And Vomiting Oxycodone HCl (Roxicodone) 5 mg PO Q4HP PRN PRN Reason: PAIN LEVEL 3-6 Last Admin: 03/06/17 08:01 Dose: 5 mg Pantoprazole Sodium (Protonix) 40 mg PO QAMAC [facility] Last Admin: 03/07/17 06:44 Dose: 40 mg Potassium Chloride (Klor-Con) 20 meq PO QID [facility] Last Admin: 03/07/17 08:11 Dose: 20 meq Sodium Chloride (Saline Flush) 10 ml IV Q8 [facility] Last Admin: 03/07/17 05:45 Dose: 10 ml Tamsulosin HCl (Flomax) 0.4 mg PO QDAY [facility] Last Admin: 03/07/17 08:10 Dose: 0.4 mg Medical - PN: A/P - Time Spent With Patient Total time spent is greater than 50% in coordination of care (as documented) at patient's floor/unit and/or counseling patient: - Narrative A/P Narrative: A/P Acute copd exacerbation, : Patient does not have h/o smoking but canchola have valentine wheezing and poor air entry, Plan go start on duonebs for now.CT chest is negative, patient will be started on steroids, clinically improving Delirum: due to being in the hospital, anticipate clearing once d/c. Recurrent falls: secondary to above, no e/o infections, Rehab with OT/PT, tret underlying condition. x ray neg for fractures. will need snf placement. Chr resp failure, Hypoxic: On 2 L oxygen, likely has undiagnosed copd. CHF/ diastolic heart failure/ sick sinus syndrome: On diuretics, and bp regime, bp stable, continue to monitor, bnp normal CKD: creat back to baseline at 1.0 today CVA: On statin, asa and plavix continue same HTN: bp stable resume home meds. Chr back pain: prn oxycodone for now, rehab, lidoderm patch. DVT hep sq Diet Cardiac Full code
[2017-03-07] MEDS: THIAMINE 100 MG in 0.9 % SODIUM CHLORIDE 50 ML IV SCH (13:00)
[2017-03-07] MEDS: POTASSIUM CHLORIDE 20 MEQ TABLET PO SCH ×3 (13:01→20:29)
[2017-03-07] MEDS: LATANOPROST OPHTH DROPS 2.5ML BOTTLE OU SCH (20:27)
[2017-03-08] MEDS: ACETAMINOPHEN 1,000 MG/100 ML BOTTLE IV SCH (03:05)
[2017-03-08] MEDS: IPRATROPIUM/ALBUTEROL 3 ML AMPUL.NEB NEB SCH ×3 (03:05→12:51)
[2017-03-08] MEDS: methylPREDNISolone SOD SUCC 125 MG/2 ML VIAL IV SCH ×2 (05:33→11:51)
[2017-03-08] MEDS: 0.9 % SODIUM CHLORIDE 10 ML SYRINGE IV SCH ×2 (05:33→14:25)
[2017-03-08 05:41] LABS: Basophils # (Auto) 0 K/mcL (0.0-0.3); Basophils % (Auto) 0.1 % (0.0-2.0); Eosinophils # (Auto) 0.3 K/mcL (0.0-0.7); Eosinophils % (Auto) 2.2 % (0.0-7.0); Granulocytes % (Auto) 90.5 % (38.0-78.0); Lymphocytes # (Auto) 0.6 K/mcL (1.5-4.8); Lymphocytes % (Auto) 4.1 % (15.5-49.0); Mean Cell Volume 90.7 fL (80.0-100.0); Mean Corpuscular HGB Conc 32.2 g/dL (31.0-36.0); Mean Corpuscular Hemoglobin 29.2 pg (26.0-34.0); Monocytes # (Auto) 0.5 K/mcL (0.1-0.9); Monocytes % (Auto) 3.1 % (1.0-12.0); Platelet Count 183 K/mcL (140-440); RBC 4.72 M/mcL (4.50-5.90); Red Cell Distribution Width 15.9 % (11.5-14.5)
[2017-03-08 06:12] LABS: ALT/SGPT 15 U/l (0-40); Albumin 4.2 gm/dL (3.2-5.2); Albumin/Globulin Ratio 1.7 (1.0-2.3); Alkaline Phosphatase 73 U/L (39-117); Bilirubin,Direct < 0.2 mg/dL (0.0-0.3); Blood Urea Nitrogen 24 mg/dl (8-23); Gamma Glutamyl Transpeptidase 15 U/L (8-61); Uric Acid 8.8 mg/dL (2.5-8.0)
[2017-03-08] MEDS: PANTOPRAZOLE 40 MG TABLET PO SCH (07:12)
[2017-03-08] MEDS ORDERED: POTASSIUM CHLORIDE 40 MEQ in 0.9 % SODIUM CHLORIDE 500 ML IV ONE (08:00)
[2017-03-08] MEDS: THIAMINE 100 MG in 0.9 % SODIUM CHLORIDE 50 ML IV SCH (09:17)
[2017-03-08] MEDS: amLODIPine 10 MG TABLET PO SCH (09:28)
[2017-03-08] MEDS: POTASSIUM CHLORIDE 20 MEQ TABLET PO SCH ×2 (09:28→14:24)
[2017-03-08] MEDS: TAMSULOSIN 0.4 MG CAPSULE PO SCH (09:28)
[2017-03-08] MEDS: CITALOPRAM 20 MG TABLET PO SCH (09:28)
[2017-03-08] MEDS: FUROSEMIDE 40 MG TABLET PO SCH (09:29)
[2017-03-08] MEDS: CALCIUM CARBONATE 500 MG TAB.CHEW CHEWED SCH (09:29)
[2017-03-08] MEDS: HYDROCHLOROTHIAZIDE 25 MG TABLET PO SCH (09:29)
[2017-03-08] MEDS: ASPIRIN 81 MG TAB.CHEW PO SCH (09:29)
[2017-03-08] MEDS: BISOPROLOL 5 MG TABLET PO SCH (09:30)
[2017-03-08] MEDS: CLOPIDOGREL 75 MG TABLET PO SCH (09:31)
[2017-03-08] MEDS: HEPARIN 5,000 UNIT/ML VIAL SQ SCH (09:48)
[2017-03-08] MEDS: ATORVASTATIN 20 MG TABLET PO SCH (09:49)
[2017-03-08] MEDS: LIDOCAINE PATCH TOPICAL SCH (09:49)
[2017-03-08] MEDS: DOXYCYCLINE HYCLATE 100 MG TABLET.ORL PO SCH (09:49)
--- NOTE | 2017-03-08 09:51 | Discharge Summary ---
Medical - DS: Prov Patient information: Note initiated : 03/08/17 at 9:45 am Service Date, if different from initiated Date: [] Patient: Jesus Falcon 81 y/o M admitted on 03/05/17 for Weakness. Chief Complaint: [] Date of admission: 03/05/17 19:40 Discharge date: 03/08/17 Primary care physician: Yovany Conde Admitting clinician: Maya Barney Consults: 03/05/17 18:51 Consult to Physician [CONS] Stat Comment: Consulting Provider: Maya Barney Reason For Exam: Physician to Consult Discharging clinician: Maya Barney Medical - DS: Meds - Discharge Medications Prescriptions: Doxycycline Hyclate 100 mg PO BID #10 tablet.orl Ipratropium/Albuterol [Duoneb] 3 ml NEB Q6 #120 ampul.neb Lidocaine 5% Oint 1 dose TOPICAL DAILY #1 tube predniSONE [Prednisone] 40 mg PO QAC #10 tab Active and Home Medications: Home Medications Clopidogrel [Plavix] 75 mg PO DAILY 11/26/14 [History Confirmed 03/05/17 Last Taken 03/05/17 12:00] Omeprazole [Prilosec] 40 mg PO QDAY 11/26/14 [History Confirmed 03/05/17 Last Taken 03/05/17 08:00] Potassium Chloride [Klor-Con] 20 meq PO QIDP 11/26/14 [History Confirmed Last Taken 03/05/17 12:00] Bisoprolol Fumarate/Hctz [Bisoprolol-Hctz 2.5-6.25 mg Tb] 1 each PO BID [History Confirmed 03/05/17 Last Taken 03/05/17 08:00] Tamsulosin [Flomax] 0.4 mg PO QDAY 07/18/16 [History Confirmed 03/05/17 Last Taken 03/05/17 12:00] amlodipine 10 mg tablet 10 mg PO QDAY 09/30/16 [History Confirmed 03/05/17 Last Taken 03/05/17 12:00] aspirin 81 mg tablet 81 mg PO .COMPLEX 09/30/16 [History Confirmed 03/05/17 Last Taken 03/05/17 08:00] glucosamine 2 cap PO DAILY 08/24/17 [History Confirmed 03/06/17 Last Taken Unknown] atorvastatin 40 mg tablet 40 mg PO QDAY #90 tab 11/23/16 [Rx Confirmed 03/05/17 Last Taken 03/05/17 12:00] furosemide 40 mg tablet 40 mg PO BID #20 tab 02/24/17 [Rx Confirmed 03/05/17 Last Taken 03/05/17 12:00] Calcium 600 mg PO QDAY 03/05/17 [History Confirmed 03/05/17 Last Taken 03/04/17 12:00] Citalopram Hydrobromide [Citalopram HBr] 40 mg PO QDAY 03/05/17 [History Confirmed 03/05/17 Last Taken 03/05/17 12:00] Latanoprost Ophth Drops [Xalatan Ophth Drops] 1 gtt OU HS 03/06/17 [History Confirmed 03/06/17 Last Taken Unknown] Propylene Glycol/Peg 400/Pf [Systane 0.3-0.4% Eye Drops] 1 drop BOTH EYES HS [History Confirmed 03/06/17 Last Taken Unknown] Medical - DS: Hosp Hospital course: Mr. Falcon is a 81 year old Male presented to the ER because of increased frequency of falls over the last 1 month, worse over last 1 week. The patient is accompanied by his daughters, and his , the patient has h/o CVA with Right sided weakness, over the last 1 week, its seen that he has had increased falls, His right leg and right arm is more weak than usual. He has had decline in his functional capacity. The patent just was diagnosed with cellulitis of the right leg and was treated with oral and IV antibiotics The patients also was noted to have some CHF exacerbation and his dose of diuretics was increased, with some response. The patient has chr back pain, as well as gen arthritis. He was given some tramadol 4-5 days ago, and initially it was felt that the increased falls and weakness is secondary to the patients use of tramadol, the patient continued to be weak despite cessation of tramadol therapy. The patient notes he has chr cough, and has noticed some wheezing, the patients admits to being dizzy, but denies any other complaints The patient is non smoker, but drinks 2 drinks daily He does not have any chest pain, no shortness of breath, no headache, no bowel or bladder complaints, no GI issues. In the ER the patient underwent [employer] workup, his labs showed low K of 3.2,. creat of 1.4, baseline 1.2, His CT Head, CTA neck and Head were neg for any acute process. Given is weakens, he was presented to the hospital for further evaluation, and was admitted to the hospital for further management. His bnp was normal, procalcitonin was neg, his CXR showed increased interstitial markings, and possible retrocardiac opacity. He was wheezing on exam but was on 2 L oxygen his usual home dose. Denies any h/o copd. Mar 06 patient seen examined, overnight was consued, ABG reviewed, no co2 narcosis, pt CT chest is neg for infection, his pelvis x ray is neg, and his CT lumbar shows DJD but no e/o acute compression fracture or obvious nerve compromise. The patient still feels weak, is valentine wheezing, likely has copd exacerbating which is contributing to hsi weakness Given that he will take more therapy/ rehab, over the next few days, will need more steroids and nebulizer traetment. Anticipated stay > 3 days, will change inpt since admission. mar 07 patient seen examined,overnight had some confusion, mild parnoia, did not take his medications, tried to hide them under the bedsheets patient otherwise feels better today plan of care reviewed with family, all questions answered. A/P Acute copd exacerbation, : Patient does not have h/o smoking but canchola have valentine wheezing and poor air entry, CT chest is neg, patient improved with steroids, antibiotics and duonebs, will compltere course of steroids x 5 more days, doxycycline x 10 more days. Duonebs q6hrs for now. Delirum: due to being in the hospital, much improved over last 2 days, but still gets confused intermittently, CT head is neg, anticipate improvement once out of the hospital environment. Recurrent falls: secondary to above, no e/o infections, Rehab with OT/PT, tret underlying condition. x ray neg for fractures. will need snf placement. for ongoing rehab. Chr resp failure, Hypoxic: On 2 L oxygen, likely has undiagnosed copd. CHF/ diastolic heart failure/ sick sinus syndrome: On diuretics, and bp regime, bp stable, continue to monitor, bnp normal, no changes made to home regime. CKD: creat back to baseline at 1.2 at discharge CVA: On statin, asa and plavix continue same HTN: bp stable resume home meds. Chr back pain: rehab, lidoderm ointment at discharge. DVT hep sq Diet Cardiac Full code Discharge diagnosis: COPD exacerbation, Weakness falls. - Time Spent with Patient Total time spent providing and/or coordinating discharge services: Greater than 30 minutes Medical - DS: Exam - Constitutional Vitals: Vital Signs Temp Pulse Pulse Resp BP Pulse Ox 03/08/17 07:15 84 16 03/08/17 06:39 99 F 20 162/91 93 03/08/17 03:47 98.0 F 89 22 162/85 92 03/07/17 23:59 98.1 F 83 24 H 176/80 96 03/07/17 19:33 98.8 F 89 24 H 173/71 93 03/07/17 15:54 98.7 F 16 148/74 95 03/07/17 11:42 98.7 F 20 143/72 95 03/07/17 11:29 75 20 03/07/17 11:02 95 Intake and Output 03/07/17 03/08/17 03/08/17 21:59 05:59 13:59 Intake Total 511 / 511 100 / 100 Output Total 575 / 575 626 / 626 125 / 125 Balance -64 / -64 -526 / -526 -125 / -125 Intake: IV 151 / 151 Vitamin B1 100 mg In Sodium 51 / 51 Chloride 0.9% 50 ml @ 50 mls/hr IV DAILY [facility] Rx#:[id number] Oral 360 / 360 100 / 100 Output: Void Amount 575 / 575 625 / 625 125 / 125 # of times incontinent of urine Other: Meal Dinner Percent of Meal Consumed 50% # Voids 1 # Bowel Movements 1 Weight 218 lb Additional comments: Constitutional; Afebrile, cooperative, alert, not in distress. Eyes- No icterus, , No periorbital swelling Ears- Ext ear normal, Neck- Midline trachea, supple Respiratory system: Air Entry equal on both sides, No crackles or wheezing, no rhonchi. CVS- Rate rhythm regular, S1,S2 heard, no gallop, no rub. [employer] WORKER- AOOx2, moving all extremities, Medical - DS: Data Labs on day of discharge: Labs from last 24 hours 03/08/17 03/08/17 04:00 04:00 WBC 15.1 H RBC 4.72 Hgb 13.8 Hct 42.8 MCV 90.7 MCH 29.2 MCHC 32.2 RDW 15.9 H Plt Count 183 MPV 9.3 Gran % 90.5 H Lymph % (Auto) 4.1 L [place] % (Auto) 3.1 Eos % (Auto) 2.2 Baso % (Auto) 0.1 Gran # 13.7 H Lymph # (Auto) 0.6 L [place] # (Auto) 0.5 Eos # (Auto) 0.3 Baso # (Auto) 0 Sodium 145 Potassium 3.2 L Chloride 99 Carbon Dioxide 31 H Anion Gap 15.0 BUN 24 H Creatinine 1.2 GFR Calculation 56 Glucose 157 H Uric Acid 8.8 H Calcium 8.9 Phosphorus 2.2 L Magnesium 1.9 Total Bilirubin 0.7 Direct Bilirubin < 0.2 GGT 15 AST 34 ALT 15 Alkaline Phosphatase 73 Lactate Dehydrogenase 312 H Total Protein 6.7 Albumin 4.2 Globulin 2.5 Albumin/Globulin Ratio 1.7 Triglycerides 64 Medical - DS: A/P - Patient/Caregiver Discharge Instructions Activity: as per physical therapy, increase activity as tolerated Diet: Cardiac Additional Instructions: Patient admitted for weakness, increased falls and COPD exacerbatin Complete the course of antibiotics with doxycycline for 5 days, Prednisone for another 5 days, DUonebs q6hrs GO to the ER if worsening symptoms, shortness of breath or any other acute concern. Follow up with PCP in 1 week. Patient will need outpatient PFT to be set up by the PCP for further evaluation of his pulmonary function. - Follow up Plan Follow up with: Yovany Conde DO [Primary Care Provider] - Disposition: Xfer SNF Prognosis: Fair Rehab Potential: Fair I certify that the patient requires SNF services: Yes Overall status at discharge: patient is progressing back to baseline
[2017-03-08] MEDS ORDERED: ACETAMINOPHEN 325 MG TABLET PO ONE (10:07)
== END 2017-03-08 15:14 | DRG 191 ==
LOC: EDBD → ED 14:18 → MEDSUR 14:18 → OBSVTOIN 19:40 → MEDSUR 19:42
PROVIDERS: ADMIT Internal Medicine; ATTEND Internal Medicine